=== PATIENT | female | born 1995 | race Caucasian/White ===

== ENCOUNTER 2016-10-24 18:49 | Emergency (ER) | payer OTHER ==
[~2016-10-24] VITALS: Ht 157.5 cm; Wt 81.6 kg
[~2016-10-24 18:49] MED LIST: IBUP-974 PO; PREN-385 PO
[2016-10-24 19:47] VITALS: BP 120/61
--- NOTE | 2016-10-24 21:02 | NUR ---
PT FELL 2 HRS AGO ON LEFT FOOT . PT DENIES N/V/D; SKIN IS PINK/WARM/DRY; AAOX4 WITH EVEN AND STEADY GAIT; LUNGS CLEAR BL; HR EVEN AND REGULAR; PT DENIES ANY FEVER, CP, SOB, OR COUGH AT THIS TIME; PATIENT STATES PAIN OF 7/10 AT THIS TIME; VSS; PATIENT POSITIONED FOR COMFORT; HOB ELEVATED; BEDRAILS UP X2; BED DOWN. ER MD MADE AWARE OF PT STATUS.
[2016-10-24] MEDS ORDERED: HYDROcodone/APAP 5/325 MG 1 TAB TAB PO ONE (21:05)
--- NOTE | 2016-10-24 21:20 | NUR ---
Patient to bed 08
--- NOTE | 2016-10-24 21:29 | NUR ---
Patient to XRAY via wheelchair per tech.
[2016-10-24 22:33] VITALS: BP 123/64
== END 2016-10-24 22:32 | disposition home or self-care (01) ==
LOC: MED 18:50
DX: S93.402A Sprain of unspecified ligament of left ankle, initial encounter (principal); W01.0XXA Fall on same level from slipping, tripping and stumbling without subsequent striking against object, initial encounter; Y93.89 Activity, other specified; Y92.89 Other specified places as the place of occurrence of the external cause; Y99.8 Other external cause status
CPT/HCPCS: 73610; 73630; 81025; 99284

== ENCOUNTER 2017-10-15 08:59 | Observation (INO) | payer MEDICAID, OTHER ==
[~2017-10-15] VITALS: Ht 157.5 cm; Wt 94.3 kg
[2017-10-15 10:30] VITALS: BP 107/56
== END 2017-10-15 11:15 | disposition home or self-care (01) ==
LOC: MLD 08:59 → UNDOADMOB 08:59
PROVIDERS: ADMIT Obstetrics & Gynecology; ATTEND Obstetrics & Gynecology
DX: O21.2 Late vomiting of pregnancy (principal); O26.893 Other specified pregnancy related conditions, third trimester; R10.13 Epigastric pain; Z3A.31 31 weeks gestation of pregnancy
CPT/HCPCS: 76805; 81000; G0378; Q0092

== ENCOUNTER 2017-10-31 16:09 | Observation (INO) | payer MEDICAID ==
[~2017-10-31] VITALS: Ht 157.5 cm; Wt 94.3 kg
[~2017-10-31 16:09] MED LIST changes: -IBUP-974 PO
[2017-10-31 16:22] VITALS: BP 103/56
== END 2017-10-31 20:10 | disposition home or self-care (01) ==
LOC: MLD 16:09
PROVIDERS: ADMIT Obstetrics & Gynecology; ATTEND Obstetrics & Gynecology
DX: O26.893 Other specified pregnancy related conditions, third trimester (principal); R10.9 Unspecified abdominal pain; Z3A.32 32 weeks gestation of pregnancy
CPT/HCPCS: 76805; 81000; 93005; G0378; Q0092

== ENCOUNTER 2017-11-27 16:32 | Inpatient (IN) | payer MEDICAID ==
[~2017-11-27] VITALS: Ht 157.5 cm; Wt 98.4 kg
[2017-11-27 17:34] VITALS: BP 117/73
[2017-11-27] MEDS ORDERED: LACTATED RINGERS 1,000 ML IV SCH (18:20)
[2017-11-27] MEDS ORDERED: AMPICILLIN 2,000 MG in NACL 0.9% 100 ML IV SCH (18:20)
[2017-11-27] MEDS ORDERED: AMPICILLIN 2,000 MG VIAL ONE (18:23)
[2017-11-27] MEDS ORDERED: TERBUTALINE 1 MG/ML VIAL SUBQ SCH (18:30)
[2017-11-27] MEDS ORDERED: CITRIC ACID/SODIUM CITRATE 30 ML UDC PO SCH (19:00)
[2017-11-27 19:39] LABS: BASOPHILS % (AUTO) 0.2 % (0.0-2.0); EOSINOPHILS # (AUTO) 0.1 K/uL (0-0.4); EOSINOPHILS % (AUTO) 0.8 % (0.0-4.0); HEMATOCRIT 31.3 % (36-48); HEMOGLOBIN 10.8 g/dL (12.0-16.0); LYMPHOCYTES # (AUTO) 2.3 K/uL (2.5-16.5); LYMPHOCYTES % (AUTO) 22.4 % (20.5-51.1); MEAN CORPUSCULAR HEMOGLOBIN 32 pg (27-31); MEAN CORPUSCULAR HGB CONC 35 g/dL (33-37); MEAN CORPUSCULAR VOLUME 91.5 fL (80-94); MONOCYTES # (AUTO) 0.7 K/uL (0.8-1.0); MONOCYTES % (AUTO) 6.6 % (1.7-9.3); NEUTROPHILS # (AUTO) 7.2 K/uL (1.8-7.7); PLATELET COUNT (AUTO) 199 K/uL (140-450); RED BLOOD CELL COUNT(AUTO) 3.42 MIL/uL (4.20-5.40); RED CELL DISTRIBUTION WIDTH 13.4 % (11.6-13.7); WHITE BLOOD COUNT (AUTO) 10.3 K/uL (4.8-10.8)
[2017-11-27 19:57] LABS: ALBUMIN 2.5 g/dL (3.4-5.0); ANION GAP 11.7 (8-16); CARBON DIOXIDE 24.7 mmol/L (21-32); CREATININE 0.6 mg/dL (0.6-1.3); POTASSIUM 3.4 mmol/L (3.5-5.1); TOTAL BILIRUBIN 0.3 mg/dL (0.0-1.0)
[2017-11-27] MEDS ORDERED: AMPICILLIN 1,000 MG in NACL 0.9% 50 ML IV SCH (20:00)
[2017-11-27] MEDS ORDERED: ceFAZolin 1,000 MG VIAL ONE (21:51)
[2017-11-27] MEDS ORDERED: OXYTOCIN 10 UNITS/ML VIAL ONE (22:02)
[2017-11-27] MEDS ORDERED: OXYTOCIN 10 UNITS/ML VIAL IM SCH (22:05)
[2017-11-27] MEDS ORDERED: ePHEDrine 50 MG/ML VIAL IV ONE (22:26)
[2017-11-27] MEDS ORDERED: fentaNYL 0.05 MG/ML VIAL ONE (22:30)
[2017-11-27] MEDS ORDERED: MORPHINE PRES FREE 10 MG/10 ML AMP IV ONE (22:31)
[2017-11-27] MEDS ORDERED: BUPIVACAINE-MPF 0.75% 10 ML VIAL INJ ONE (22:31)
[2017-11-27] MEDS ORDERED: ceFAZolin 1,000 MG VIAL IVP ONE (22:55)
[2017-11-27] MEDS ORDERED: KETOROLAC 60 MG/2 ML VIAL IM PRN (23:05)
[2017-11-27] MEDS ORDERED: NALBUPHINE 10 MG/ML AMP IVP PRN (23:05)
[2017-11-27] MEDS ORDERED: NALOXONE 0.4 MG/ML VIAL IVP PRN ×3 (23:05)
[2017-11-27] MEDS ORDERED: ONDANSETRON 4 MG/2 ML VIAL IVP PRN ×2 (23:05)
[2017-11-27] MEDS ORDERED: OXYTOCIN 10 UNITS in LACTATED RINGERS 1,000 ML IV SCH (23:29)
[2017-11-27] MEDS ORDERED: METHYLERGONOVINE 0.2 MG/ML AMP IM PRN (23:30)
[2017-11-27] MEDS ORDERED: MEASLES, MUMPS, AND RUBELLA 1 VIAL SQVAC PRN (23:30)
[2017-11-27] MEDS ORDERED: HYDROcodone/APAP 5/325 MG 1 TAB TAB PO PRN (23:30)
[2017-11-27] MEDS ORDERED: oxyCODONE/APAP 5/325 MG 1 TAB TAB PO PRN (23:30)
[2017-11-27] MEDS ORDERED: TEMAZEPAM 15 MG CAP PO PRN (23:30)
[2017-11-27] MEDS ORDERED: TRIMETHOBENZAMIDE 200 MG/2 ML SYR IM PRN (23:30)
[2017-11-27] MEDS ORDERED: diphenhydrAMINE 50 MG/ML VIAL ONE (23:41)
[2017-11-27] MEDS ORDERED: OXYTOCIN 20 UNITS/LR PREMIX 1,000 ML IV ONE (23:43)
[2017-11-27] MEDS ORDERED: ONDANSETRON 4 MG/2 ML VIAL ONE (23:48)
[2017-11-28] MEDS ORDERED: OXYTOCIN 10 UNITS/ML VIAL ONE ×2 (02:05→22:05)
[2017-11-28] MEDS: diphenhydrAMINE 50 MG/ML VIAL IVP PRN ×2 (03:18→09:13)
[2017-11-28 06:15] LABS: BASOPHILS % (AUTO) 0.1 % (0.0-2.0); EOSINOPHILS % (AUTO) 0.3 % (0.0-4.0); HEMATOCRIT 27.9 % (36-48); HEMOGLOBIN 9.4 g/dL (12.0-16.0); LYMPHOCYTES # (AUTO) 2.4 K/uL (2.5-16.5); LYMPHOCYTES % (AUTO) 18.8 % (20.5-51.1); MEAN CORPUSCULAR HEMOGLOBIN 31 pg (27-31); MEAN CORPUSCULAR HGB CONC 34 g/dL (33-37); MEAN CORPUSCULAR VOLUME 92.1 fL (80-94); MONOCYTES # (AUTO) 0.7 K/uL (0.8-1.0); MONOCYTES % (AUTO) 5.8 % (1.7-9.3); NEUTROPHILS # (AUTO) 9.6 K/uL (1.8-7.7); PLATELET COUNT (AUTO) 163 K/uL (140-450); RED BLOOD CELL COUNT(AUTO) 3.03 MIL/uL (4.20-5.40); RED CELL DISTRIBUTION WIDTH 13.3 % (11.6-13.7); WHITE BLOOD COUNT (AUTO) 12.7 K/uL (4.8-10.8)
[2017-11-28] MEDS ORDERED: OXYTOCIN 20 UNITS in LACTATED RINGERS 1,000 ML IV SCH (08:38)
--- NOTE | 2017-11-28 08:51 | NUR ---
PATIENT HAS BEEN SCREENED AND CATEGORIZED LOW NUTRITION RISK. PATIENT WILL BE SEEN WITHIN 7 DAYS OF ADMISSION. 12/04/[address]
[2017-11-28] MEDS: SODIUM PHOSPHATE 118 ML ENEM RC SCH (09:00)
[2017-11-28] MEDS ORDERED: HYDROmorphone PFS 2 MG/ML SYR IVP PRN (10:05)
[2017-11-28] MEDS ORDERED: KETOROLAC 30 MG/ML VIAL IVP SCH (15:00)
[2017-11-28] MEDS ORDERED: oxyCODONE/APAP 5/325 MG 1 TAB TAB PO PRN (17:20)
[2017-11-28] MEDS ORDERED: HYDROcodone/APAP 5/325 MG 1 TAB TAB PO PRN ×2 (17:20→17:45)
[2017-11-28] MEDS ORDERED: DOCUSATE SOD/SENNA 50/8.6 MG 1 TAB PO SCH (21:00)
[2017-11-28] MEDS: oxyCODONE/APAP 5/325 MG 1 TAB TAB PO PRN (22:35)
[2017-11-29] MEDS: oxyCODONE/APAP 5/325 MG 1 TAB TAB PO PRN ×5 (04:55→23:30)
[2017-11-29] MEDS: SODIUM PHOSPHATE 118 ML ENEM RC SCH (09:00)
[2017-11-29] MEDS: SIMETHICONE 80 MG TAB.CHEW PO PRN ×2 (09:28→19:53)
[2017-11-29] MEDS ORDERED: DOCUSATE CALCIUM 240 MG GELCAP PO SCH (11:45)
[2017-11-29] MEDS ORDERED: BISACODYL 5 MG TABEC PO PRN ×2 (11:55)
[2017-11-29] MEDS: IBUPROFEN 800 MG TAB PO PRN ×2 (12:27→22:13)
[2017-11-30] MEDS: oxyCODONE/APAP 5/325 MG 1 TAB TAB PO PRN ×2 (04:45→13:10)
[2017-11-30] MEDS: SIMETHICONE 80 MG TAB.CHEW PO PRN ×2 (07:52→12:13)
[2017-11-30] MEDS: IBUPROFEN 800 MG TAB PO PRN (07:53)
[2017-11-30] MEDS: SODIUM PHOSPHATE 118 ML ENEM RC SCH (09:26)
[2017-11-30] MEDS ORDERED: IBUP-2213 PO ×2 (15:52→15:53)
[2017-11-30] MEDS ORDERED: SIME80CT70 PO (15:54)
== END 2017-11-30 16:10 | disposition home or self-care (01) | DRG 540 ==
LOC: MLD 16:32 → OBSVTOIN 19:22 → MFCC 11-28 00:20
PROVIDERS: ADMIT Obstetrics & Gynecology; ATTEND Obstetrics & Gynecology
PROC: 10D00Z1 Extraction of Products of Conception, Low, Open Approach (ICD-10-PCS; principal; 2017-11-27 22:30)
DX: O34.211 Maternal care for low transverse scar from previous cesarean delivery (principal); O99.214 Obesity complicating childbirth; D64.9 Anemia, unspecified; Z3A.36 36 weeks gestation of pregnancy; Z37.0 Single live birth; Z68.39 Body mass index [BMI] 39.0-39.9, adult; Z28.21 Immunization not carried out because of patient refusal; O99.02 Anemia complicating childbirth
CPT/HCPCS: G0378 ×3; 36415; 76819; 80053; 85025; 86592; 86886; 86900; 86901; J0290; J0690; J1200; J1885; J2270; J2405; J2590; J3010; J3490; J7060; J7120; Q0092

== ENCOUNTER 2018-11-03 14:06 | Inpatient (IN) | payer OTHER ==
[~2018-11-03] VITALS: Ht 157.5 cm; Wt 93.0 kg
[~2018-11-03 14:06] MED LIST changes: +IBUP-2213 PO; +SIME80CT70 PO
[2018-11-03 14:21] VITALS: BP 127/81
--- NOTE | 2018-11-03 14:35 | NUR ---
23 Y FEMALE BIB BOYFRIEND C/O BURNING PAIN IN BACK AND BURNING/TIGHT PAIN IN EPIGASTRIC REGION AT 10, TREATED WITH NORCO AND PERCOCET WITH NO RELIEF. PT REPORTS TUMMY TUCK, LIPO SUCTION, AND MUSCLE REPAIR SURGERY IN [facility] ON 10/31/18. JOAN DRAIN AND KRYSTA DRAIN WITH THIN BLOODY DRAINAGE. NO ERYTHEMA, OR EDEMA AROUND INCISION, NO DEHISCENE. + NAUSEA, -VOMITING. VSS AT THIS TIME. AA0X4. BED IS DOWN, LOCKED, BED RAIL X 1, ERMD NOTIFIED. MEDHX:NONE RX:NORCO
--- NOTE | 2018-11-03 15:30 | NUR ---
DR VALLECILLO AT BEDSIDE
--- NOTE | 2018-11-03 15:31 | NUR ---
Female Clinical Application Consultant, CONRADO FRAZIER, accompanied female patient for PHYSICAL Exam.
[2018-11-03] MEDS ORDERED: ONDANSETRON 4 MG/2 ML VIAL IVP ONE (15:40)
[2018-11-03] MEDS ORDERED: NACL 0.9% 1,000 ML IV ONE (15:40)
[2018-11-03] MEDS ORDERED: MORPHINE SULFATE 4 MG/ML SYR IVP ONE ×2 (15:40→19:40)
[2018-11-03 16:19] LABS: BASOPHILS % (AUTO) 0.2 % (0.0-2.0); EOSINOPHILS # (AUTO) 0.1 K/uL (0-0.4); EOSINOPHILS % (AUTO) 0.6 % (0.0-4.0); HEMATOCRIT 26.1 % (36-48); HEMOGLOBIN 8.8 g/dL (12.0-16.0); LYMPHOCYTES # (AUTO) 2.9 K/uL (2.5-16.5); LYMPHOCYTES % (AUTO) 29.7 % (20.5-51.1); MEAN CORPUSCULAR HEMOGLOBIN 30 pg (27-31); MEAN CORPUSCULAR HGB CONC 34 g/dL (33-37); MEAN CORPUSCULAR VOLUME 88.9 fL (80-94); MONOCYTES # (AUTO) 0.6 K/uL (0.8-1.0); MONOCYTES % (AUTO) 6.1 % (1.7-9.3); NEUTROPHILS # (AUTO) 6.2 K/uL (1.8-7.7); NEUTROPHILS % (AUTO) 63.4 % (42.2-75.2); PLATELET COUNT (AUTO) 246 K/uL (140-450); RED BLOOD CELL COUNT(AUTO) 2.94 MIL/uL (4.20-5.40); RED CELL DISTRIBUTION WIDTH 13.5 % (11.6-13.7); WHITE BLOOD COUNT (AUTO) 9.8 K/uL (4.8-10.8)
--- NOTE | 2018-11-03 16:30 | NUR ---
PT IS AA0X4. VSS AT THIS TIME.
[2018-11-03 17:27] LABS: APPEARANCE,URINE HAZY (CLEAR)
[2018-11-03 17:28] LABS: BILIRUBIN,URINE NEGATIVE (NEGATIVE); BLOOD, URINE 2+ (NEGATIVE); COLOR,URINE YELLOW (YELLOW); UGLUCOSE NEGATIVE (NEGATIVE)
[2018-11-03 17:29] LABS: LEUKOCYTE ESTERASE ,URINE NEGATIVE (NEGATIVE); NITRITE, URINE NEGATIVE (NEGATIVE)
[2018-11-03 17:59] LABS: RBC,URINE 80-100 /HPF (0-5); WBC,URINE 0-5 /HPF (0-5)
--- NOTE | 2018-11-03 18:24 | NUR ---
CT WITH CONTRAST DELAYED FOR LAB RESULTS
--- NOTE | 2018-11-03 18:24 | NUR ---
IV FLUIDS SWITCHED TO 20 G IN THE LT ARM
[2018-11-03 18:28] LABS: ANION GAP 15.9 (8-16); CARBON DIOXIDE 25.7 mmol/L (21-32); POTASSIUM 3.6 mmol/L (3.5-5.1)
[2018-11-03 18:29] LABS: CREATININE 0.7 mg/dL (0.6-1.3)
[2018-11-03 18:34] LABS: ALBUMIN 2.8 g/dL (3.4-5.0); TOTAL BILIRUBIN 0.5 mg/dL (0.0-1.0)
--- NOTE | 2018-11-03 19:16 | NUR ---
PT TAKEN TO XRAY BY BED WITH RT.
--- NOTE | 2018-11-03 19:22 | NUR ---
PT BACK FORM XRAY, PROCEDURE WAS NO TOLERATED. ER AWARE.
--- NOTE | 2018-11-03 19:23 | NUR ---
report given to anton hussein
--- NOTE | 2018-11-03 19:30 | NUR ---
REGINALD HERNANDEZ AT BEDSIDE.
[2018-11-03] MEDS ORDERED: ACET-5629 PO (20:07)
[2018-11-03] MEDS ORDERED: HYDR-5122 PO (20:07)
--- NOTE | 2018-11-03 20:16 | NUR ---
PT RETURN FROM CT
[2018-11-03] MEDS ORDERED: fentaNYL 0.05 MG/ML VIAL IVP ONE (21:30)
--- NOTE | 2018-11-03 22:05 | NUR ---
1.5 L of O2 STARTED, PATIENT WAS FEELING SOB. REGINALD HERNANDEZ AWARE. Addendum: 11/03/18 at 2309 by MEDGA 1.5 L of O2 STARTED NC, PATIENT WAS FEELING SOB. REGINALD HERNANDEZ AWARE.
[2018-11-03] MEDS: NACL 0.9% 1,000 ML IV SCH (23:50)
--- NOTE | 2018-11-03 23:55 | NUR ---
Patient will be admitted to care of [facility] . Admited to TELE. Will go to room 125B. Belongings list completed. Report to ELIS REECE. Addendum: 11/04/18 at 0335 by ANIVALGA Patient will be admitted to care of [facility]. Admited to TELE. Will go to room 125B. Belongings list completed. Report to ELIS ARORAS.
--- NOTE | 2018-11-04 | NUR ---
PT. RECEIVED PER JESSICA AWAKE AND ALERT. DX. ABDOMINAL PAIN RT S/P TUMMY TUCK AND LIPOSUCTION IN [facility] 09/30/18. ORIENTED X 4. ROM X 4. CLEAR SPEECH. NO SOB. ROOM AIR . 02 SAT 100%. PT. WITH HEMOVAC TO TUMMY TUCK SITE AND WITH SEROUS SANGUINOUS OUTPUT. PT. ABLE TO EMPTY IT AND JOAN DRAIN TO BACK. ORIENTED TO ROOM, CARE GIVERS, AND CALL LIGHT USE. CARE PLANS FOR THE NIGHT DISCUSSED WITH HER. SPOUSE AT BEDSIDE. TELEMETRY MONITORING. NSR. IVF SITES TO RAC #20 AND LEFT AC 24.
[2018-11-04 00:25] VITALS: BP 101/55
[2018-11-04] MEDS: MORPHINE SULFATE 4 MG/ML SYR IVP PRN ×5 (00:29→17:12)
--- NOTE | 2018-11-04 01:29 | NUR ---
SLEEPING AT THIS TIME.
--- NOTE | 2018-11-04 02:45 | NUR ---
PT. AMBULATED WELL TO RESTROOM TO URINATE. NO BM AT THIS TIME. ABLE TO URINATE.
[2018-11-04 03:03] VITALS: BP 93/60
--- NOTE | 2018-11-04 03:06 | NUR ---
PT. WOKE UP AND REQUESTING FOR PAIN RELIEVER. WILL MEDICATE REQUESTED. SPOUSE AT BEDSIDE WATCHING OVER PT.
--- NOTE | 2018-11-04 04:12 | NUR ---
SLEEPING AT THIS TIME.
--- NOTE | 2018-11-04 04:25 | NUR ---
HEMOVAC EMPTIED OF 50 ML SEROUS SANGUINOUS DRAINAGE. JOAN AT LIPOSUCTION SITE NO DRIPPING PER PT.
[2018-11-04 06:02] VITALS: BP 108/68
--- NOTE | 2018-11-04 06:04 | NUR ---
PT. AWAKE AND REQUESTING FOR PAIN RELIEVER. WILL MEDICATE WITH MORPHINE ORDERED. ABLE TO VERBALIZE NEEDS WELL. TELEMETRY MONITORING.
--- NOTE | 2018-11-04 07:23 | NUR ---
ENDORSED TO AM RN FOR CONTINUITY OF CARE AWAKE AND ALERT. NO PAIN COMPLAINTS NOW. MEDICATED PRN WITH MORPHINE. PT. EDUCATED RE: SIDE EFFECTS. AWARE.
--- NOTE | 2018-11-04 07:25 | NUR ---
REPORT RECEIVED FROM RETAIL BUSINESS DEVELOPMENT MANAGER, PT AWAKE ALERT, RESP EVEN UNLABORED ON RA, SKIN WARM DRY COLOR WNL, NO C/O PAIN OR DISCOMFORT AT THIS TIME, POC REVIEWED, NO IMMEDIATE NEEDS AT THIS TIME, WILL CONTINUE TO MONITOR.
[2018-11-04 07:51] LABS: ALBUMIN 2.5 g/dL (3.4-5.0); ANION GAP 15.2 (8-16); CARBON DIOXIDE 22.5 mmol/L (21-32); CREATININE 0.6 mg/dL (0.6-1.3); POTASSIUM 3.7 mmol/L (3.5-5.1); TOTAL BILIRUBIN 0.7 mg/dL (0.0-1.0)
[2018-11-04 08:03] LABS: BASOPHILS % (AUTO) 0.2 % (0.0-2.0); EOSINOPHILS # (AUTO) 0.2 K/uL (0-0.4); EOSINOPHILS % (AUTO) 1.5 % (0.0-4.0); HEMATOCRIT 25.3 % (36-48); HEMOGLOBIN 8.5 g/dL (12.0-16.0); LYMPHOCYTES # (AUTO) 3.3 K/uL (2.5-16.5); LYMPHOCYTES % (AUTO) 31.4 % (20.5-51.1); MEAN CORPUSCULAR HEMOGLOBIN 30 pg (27-31); MEAN CORPUSCULAR HGB CONC 34 g/dL (33-37); MEAN CORPUSCULAR VOLUME 89.7 fL (80-94); MONOCYTES # (AUTO) 0.7 K/uL (0.8-1.0); MONOCYTES % (AUTO) 6.5 % (1.7-9.3); NEUTROPHILS # (AUTO) 6.3 K/uL (1.8-7.7); NEUTROPHILS % (AUTO) 60.4 % (42.2-75.2); PLATELET COUNT (AUTO) 250 K/uL (140-450); RED BLOOD CELL COUNT(AUTO) 2.82 MIL/uL (4.20-5.40); RED CELL DISTRIBUTION WIDTH 13.4 % (11.6-13.7); WHITE BLOOD COUNT (AUTO) 10.4 K/uL (4.8-10.8)
--- NOTE | 2018-11-04 08:06 | NUR ---
PT ASSISTED WITH CHANGING GOWN AND DEPENDS, PT STATES SHE FEELS DIZZY WHEN STANDING, PT ASSISTED BACK TO BED, POSITIONED FOR COMFORT, VITALS STABLE, WILL CONTINUE TO MONITOR.
[2018-11-04 09:00] VITALS: BP 114/62
--- NOTE | 2018-11-04 10:05 | NUR ---
WOUND CARE EVALUATION NOTE: REASON FOR EVALUATION: S/P DAVID TUCK SURGICAL WOUNDS SKIN ASSESSMENT DONE WITH THIS 23 Y/O FEMALE S/P DAVID TUCK SURGICAL WOUNDS. PT. EXPLAIN THE POST OP FOLLOW UP APPOINTMENT IN 2 WEEKS BACK TO [facility]. PT. IS AAX4. EXPLAIN TO PT. ALL SURGICAL SITES NO S/S OF INFECTION AND NO WOUND DEHISCENCE. WILL HAVE PAIN CONTROL AND REQUEST SURGEON TO CONSULT AT THIS TIME. PLAN OF CARE DISCUSSED WITH PT AND PRIMARY RN. PT. VERBALIZES UNDERSTANDING. INTEGUMENTARY: -S/P DAVID TUCK SURGICAL WOUNDS TO LOWER ABDOMINAL SUTURE LINES 33 CM IN WIDTH, STERI STRIPS IN PLACE DRY AND CLEAN, NO S/S INFECTION AND NO WOUND DEHISCENCE - S/P DAVID TUCK SURGICAL WOUNDS TO MID ABDOMINAL SUTURE LINES 5 CM IN LENGTH, DRY AND CLEAN NO S/S INFECTION AND NO WOUND DEHISCENCE -RIGHT HIP HEMOVAC SITE DRY AND CLEAN WITH SUTURES SECURED, FUNCTIONING, SMALL AMOUNT SANGUINOUS DRAINAGE IN THE HEMO VAC OBSERVED. -LOWER BUTTOCK WITH JOAN DRAIN IN PLACE AND FUNCTIONING, SMALL AMOUNT SEROUS DRAINAGE, NO ODOR RECOMMENDATIONS: -SURGEON TO CONSULT -KEEP LOWER ABDOMINAL SURGICAL STERI STRIPS IN PLACE, KEEP IT DRY AND CLEAN ANT ALL TIMES -CLEANSE SUTURE LINES WITH NS TO MID ABDOMINAL SUTURES AND RIGHT HIP HEMOVAC SITE, PAT COMPLETE DRY AND LEAVE IT OPEN TO AIR QD -CONTINUE TO MONITOR JOAN DRAIN PLACEMENT AND DRAINAGE Q SHIFT. -CONTINUE TO MONITOR/ EMPTY HEMOVAC Q SHIFT -CONTINUE TO FOLLOW RD RECOMMENDATIONS ALL ABOVE RECOMMENDATIONS DISCUSSED WITH PRIMARY RN. PLEASE CONTACT WOUND CARE NURSE FOR ANY QUESTION AND CHANGE OF WOUND CONDITION.
--- NOTE | 2018-11-04 10:33 | NUR ---
PATIENT HAS BEEN SCREENED AND CATEGORIZED LOW NUTRITION RISK. PATIENT WILL BE SEEN WITHIN 7 DAYS OF ADMISSION. 11/10/[address]
--- NOTE | 2018-11-04 11:20 | NUR ---
DR COFFEY AT BEDSIDE
--- NOTE | 2018-11-04 11:25 | NUR ---
DR COFFEY MADE AWARE OF INCREASED HR 100-118.
[2018-11-04 11:30] VITALS: BP 115/60
--- NOTE | 2018-11-04 13:05 | NUR ---
PT ASSISTED TO BATHROOM, JOAN ON LOWER BACK WITH COPIOUS DRAINAGE, PADS CHANGED, PT DENIES LIGHTHEADEDNESS, RETURNED BACK TO BED WILL CONTINUE TO [facility].
[2018-11-04] MEDS: HYDROcodone/APAP 10/325 MG 1 TAB TAB PO PRN ×2 (13:07→22:20)
[2018-11-04] MEDS: GAUZE TP SCH (13:09)
[2018-11-04] MEDS ORDERED: DOCUSATE SODIUM 250 MG GELCAP PO SCH (14:00)
[2018-11-04] MEDS: NACL 0.9% 1,000 ML IV SCH (14:48)
--- NOTE | 2018-11-04 14:50 | NUR ---
NEW IV BAG HUNG, PT AWAKE ALERT, NO C/O PAIN AT THIS TIME, IVF INFUSING WELL, SITE WNL, PT C/O ITCHING THROUGH OUT BODY , PT REQUESTS JEAN-PIERREADRYL, DR OLAMIDE LEUNG.
--- NOTE | 2018-11-04 15:25 | NUR ---
PT ASSISTED WITH CHANGING GOWN, UNDERWEAR, PENDRAIN SITE WITH COPIOUS DRAINAGE, PT UP OUT OF BED WITHOUT PROBLEM, AMBULATES AND TRANSFERS WITH EASE.
[2018-11-04 16:00] VITALS: BP 118/73
--- NOTE | 2018-11-04 17:18 | NUR ---
MORPHINE GIVEN FOR PAIN.
--- NOTE | 2018-11-04 18:10 | NUR ---
PT CONTINUES TO C/O PAIN, DR AUGUSTE CALLED AND RECEIVED ORDER FOR BENADRYL
[2018-11-04] MEDS ORDERED: diphenhydrAMINE 50 MG CAP PO SCH (18:15)
[2018-11-04] MEDS: ONDANSETRON 4 MG/2 ML VIAL IVP PRN (19:18)
--- NOTE | 2018-11-04 19:18 | NUR ---
RECEIVED PT IN STABLE CONDITION FROM AM NURSE. AWAKE,ALERT AND ORIENTED X4. ON MED SURG. WITH FAMILY AT BEDSIDE. C/O NAUSEA. WILL MEDICATE ORDERED. HAS IVF INFUSING WELL ON THE RT AC G#24. CLEAN AND PATENT. WITH LOWER ABDOMINAL STERI STRIPS. HEMOVAC DRAIN ON THE RT HIP AND JOAN DRAIN AT THE COCCYX AREA,DRESSING IN PLACED. BED ON LOW POSITION, FREQ CHECKED ,CALL LIGHT WITHIN EASY REACH. WILL CONTINUE TO MONITOR.
--- NOTE | 2018-11-04 19:21 | NUR ---
REPEORT GIVEN TO KENO DEALER NURSE FAVIAN, PT IN STABLE CONDITION.
--- NOTE | 2018-11-04 20:18 | NUR ---
C/O BLURRY VISION. PAGED DR. QUIÑONEZ, AND DR. AUGUSTE FINANCIAL RESERVE CLERK. WILL WAIT FOR CALL BACK.
--- NOTE | 2018-11-04 20:24 | NUR ---
DR. AUGUSTE CALLED BACK AND MADE AWAREVOF THE PT C/O BLURRY VISION. NO NEW ORDER MADE. WILL CONTINUE TO MONITOR.
--- NOTE | 2018-11-04 22:00 | NUR ---
JOAN DRAIN A LOT ,WET . CLEANED AND DRESSING CHANGED.
--- NOTE | 2018-11-04 22:20 | NUR ---
PT REFUSED THE MORPHINE FOR PAIN. THIS TIME SHE PREFER NORCO . GIVEN ORDERED.
--- NOTE | 2018-11-04 23:20 | NUR ---
MADE ROUNDS. PT ASLEEP. NO S/S OF ANY PAIN NOTED.
[2018-11-05 00:17] VITALS: BP 123/74
--- NOTE | 2018-11-05 01:30 | NUR ---
MADE ROUNDS. PT IS ASLEEP. NO DISCOMFORT NOTED AT THIS TIME.
--- NOTE | 2018-11-05 04:10 | NUR ---
PT AWAKE. JOAN DRAIN DRESSING CHANGED.
[2018-11-05] MEDS: NACL 0.9% 1,000 ML IV SCH ×3 (04:26→18:44)
[2018-11-05 05:00] VITALS: BP 118/71
[2018-11-05] MEDS: HYDROcodone/APAP 10/325 MG 1 TAB TAB PO PRN ×3 (05:03→20:06)
--- NOTE | 2018-11-05 06:00 | NUR ---
HEMOVAC OUTPUT @50 ML SEROSANGUINEOUS
--- NOTE | 2018-11-05 07:06 | NUR ---
PT I STABLE CONDITION . WILL ENDORSE TO AM NURSE FOR CONTINUITY OF CARE.
--- NOTE | 2018-11-05 07:10 | NUR ---
RECEIVED PT FROM MANAGER FUNCTIONAL NURSEFAVIAN, PT IS AWAKE AND LYING ON THE BED WITH SIDE RAILS UP AND CALL LIGHT WITHIN REACH, PT HAS A HEMOVAC IN PLACE ON THE RT HIP SIDE, AND A JOAN DRAIN ON THE SACRAL TOP AREA, REINFORCED WITH ABDOMINAL DRESSINGS AND INTACT, PT HAS IV LINE ON THE LEFT AC G.20 ON SALINE LOCK AND ON THE RT ASG. 24 WITH NS AT 70ML/HR INFUSING AND INTACT, PT VERBALIZED A PAIN RATE OF 9/10 AND WILL MEDICATE. WILL MONITOR PT.
[2018-11-05 07:41] LABS: BASOPHILS % (AUTO) 0.2 % (0.0-2.0); EOSINOPHILS # (AUTO) 0.3 K/uL (0-0.4); EOSINOPHILS % (AUTO) 2.9 % (0.0-4.0); HEMATOCRIT 24.9 % (36-48); HEMOGLOBIN 8.5 g/dL (12.0-16.0); LYMPHOCYTES # (AUTO) 2.2 K/uL (2.5-16.5); LYMPHOCYTES % (AUTO) 21.1 % (20.5-51.1); MEAN CORPUSCULAR HEMOGLOBIN 31 pg (27-31); MEAN CORPUSCULAR HGB CONC 34 g/dL (33-37); MEAN CORPUSCULAR VOLUME 88.8 fL (80-94); MONOCYTES # (AUTO) 0.8 K/uL (0.8-1.0); MONOCYTES % (AUTO) 7.7 % (1.7-9.3); NEUTROPHILS % (AUTO) 68.1 % (42.2-75.2); PLATELET COUNT (AUTO) 311 K/uL (140-450); RED CELL DISTRIBUTION WIDTH 13.6 % (11.6-13.7); WHITE BLOOD COUNT (AUTO) 10.3 K/uL (4.8-10.8)
--- NOTE | 2018-11-05 07:50 | NUR ---
PT IS AWAKE AND WAS ASSISTED TO THE BATHROOM, AND BACK TO BED, AND MADE COMFORTABLE WITH 2 WARM BLANKETS, WILL MONITOR PT.
[2018-11-05 08:00] VITALS: BP 118/67
--- NOTE | 2018-11-05 08:00 | NUR ---
CM NOTE I SPOKE WITH NIKI OF DR. LARISSA [facility] PH# [phone] IN AN ATTEMPT TO SCHEDULE AN OUTPATIENT FOLLOW UP APPOINTMENT. PER NIKI, THEY ARE A WALK IN CLINIC AND THEY DO NOT SCHEDULE APPOINTMENTS. SHE ALSO SAID THAT THE CLINIC SCHEDULE IS FROM MONDAYS TO FRIDAYS [id number] TIME AND SATURDAYS [id number] TIME AT THE CLINIC AT [address] [place] [address]. I PROVIDED THE PATIENT THE CLINIC SCHEDULE, ADDRESS AND PHONE NUMBER OF THE CLINIC AND EMPHASIZED THE IMPORTANCE OF FOLLOWING UP WITH HER PCP POST DISCHARGE. THE PATIENT VERBALIZED UNDERSTANDING.
--- NOTE | 2018-11-05 08:19 | NUR ---
DUE TO CHANGE IN TAHIRA SCORE PATIENT HAS BEEN RESCREENED AND CATEGORIZED MODERATE RISK. PATIENT WILL BE SEEN WITHIN 3-5 DAYS FROM ADMISSION. 11/06/18-11/08/[address]
[2018-11-05] MEDS: ONDANSETRON 4 MG/2 ML VIAL IVP PRN (08:58)
[2018-11-05] MEDS: DOCUSATE SODIUM 250 MG GELCAP PO SCH (08:58)
[2018-11-05] MEDS: MORPHINE SULFATE 4 MG/ML SYR IVP PRN (08:59)
--- NOTE | 2018-11-05 08:59 | NUR ---
PT IS AWAKE AND VERBALIZED A PAIN RATE OF 9/10, VITAL SIGNS CHECKED AND BP IS 118/66, PULSE IS 109. TEMPERATURE IS98.2, O2 SATURATION IS AT 98%, RESPIRATION IS EVEN AT A RATE OF 16/MIN, PAIN MEDICATION WAS GIVEN VIA IV PUSH AND PT TOLERATED IT. NO SIGN OF DISTRESS NOTED, WILL MONITOR PT.
[2018-11-05] MEDS ORDERED: BISACODYL 10 MG SUPP RC SCH (10:12)
[2018-11-05] MEDS: GAUZE TP SCH (12:55)
--- NOTE | 2018-11-05 13:00 | NUR ---
PT HEMOVAC DRESSING WAS CHANGED WELL THE JOAN DRESSING.
--- NOTE | 2018-11-05 13:55 | NUR ---
TALKED TO DR. QUIÑONEZ MADE AWARE PT TEMP 101.4 ORALLY, PATIENT AWAKE, ORIENTED X4, ICE APPLIED ON BOTH AXILLA, WET TOWEL ON FOREHEAD, IVF ONGOING WELL TOLERATED.
--- NOTE | 2018-11-05 14:30 | NUR ---
PT WAS ASSISTED TO THE BATHROOM AND MADE A BOWEL MOVEMENT, AND WAS ASSISTED BACK TO BED, DRESSING WAS CHANGE. NO SIGN OF DISTRESS NOTED AND WILL MONITOR PT.
[2018-11-05] MEDS: ACETAMINOPHEN 325 MG TAB PO PRN (14:55)
--- NOTE | 2018-11-05 15:00 | NUR ---
PT IS AWAKE AND TYLENOL WAS GIVEN FOR A TEMPERATURE OF 100.4, MEDICATION NWAS GIVEN ALSO VIA IVPB AND PT TOLERATED IT, NO SIGN OF DISTRESS NOTED. WILL CONTINUE TO MONITOR PT.
[2018-11-05 16:00] VITALS: BP 105/70
--- NOTE | 2018-11-05 19:05 | NUR ---
ENDORSED PT TO BOWLING BALL ENGRAVER NURSEPAPO FOR CONTINUITY OF CARE, PT IS WITH ON THE BEDSIDE AWAKE AND IS STABLE THIS TIME.
[2018-11-05 20:00] VITALS: BP 118/68
--- NOTE | 2018-11-05 21:56 | NUR ---
PT C/O OF 05/08 PAIN UNRELIEVED BY NORCO EARLIER.INFORMED DR. REAL CASE CONSULTANT,WILL ORDER DILAUDID
--- NOTE | 2018-11-05 22:00 | NUR ---
PT'S DRESSING CHANGED. DID NOT ADMINISTER DILAUDID YET PT COULD TOLERATE DRESSING CHANGE AND ABLE TO WALK TO THE BATHROOM WITHOUT SIGNS/SX'S OF SEVERE PAIN
--- NOTE | 2018-11-06 01:00 | NUR ---
PT C/O 10/10 PAIN ON ABDOMINAL SITE S/P SURGERY. WILL ADMINISTER THE DILAUDID ORDERED EARLIER BY DR. QUIÑONEZ.
[2018-11-06] MEDS: HYDROmorphone 1 MG/ML AMP IVP PRN ×5 (01:04→22:24)
--- NOTE | 2018-11-06 03:30 | NUR ---
CHANGED DRESSING OF PATIENT, SOAKED DRESSING, MAXIMAL AMOUNT. JOAN DRAIN OPEN TO DRAIN DRESSING SOAKED. SOAKED DRESSING, MAX IN AMOUNT PURULENT DRAINAGE NOTED ON THE RIGHT ABDOMEN WOUND. DRAINED 50 ML= HEMOVAC.
--- NOTE | 2018-11-06 03:35 | NUR ---
ASSESSED ABDOMEN, NOTED SWELLING ON THE LEFT SIDE OF ABDOMEN. PT SIDE THAT WHEN TOUCHED PAIN IS 9/10, PT FLINCHING IN PAIN UPON PALPATION. INFORMED CHARGE NURSE. TO INFORM NEXT SHIFT NURSE TO INFORM
--- NOTE | 2018-11-06 04:09 | NUR ---
CHANGED DRESSING, PT C/O OF 05/08 PAIN, PAIN MEDS WILL BE GIVEN
--- NOTE | 2018-11-06 05:55 | NUR ---
TEMP 99.1 AFEBRILE BI Addendum: 11/06/18 at 0555 by Alecia Milton RN TEMP 99.1 AFEBRILE, BUT PT C/O HEADACHE 12/06 WILL ADMINISTER TYLENOL
[2018-11-06] MEDS: ACETAMINOPHEN 325 MG TAB PO PRN ×2 (05:56→16:38)
--- NOTE | 2018-11-06 06:47 | NUR ---
PT AWAKE,IN BED SITTING. GIVEN TYLENOL WILL ENDORSE TO NEXT SHIFT FOR PAIN REASSESSMENT. WILL ENDORSE TO NEXT SHIFT, MAX AMOUNT OF SOAKED DRESSING ON RIGHT SIDE OF ABDOMEN, YELLOW IN COLOR. DRESSING ON THE SACRAL AREA W/ THE JOAN DRAIN, DRAINING FREELY. YELLOW IN COLOR, ALSO SOAKED MAX AMOUNT.
--- NOTE | 2018-11-06 07:15 | NUR ---
RECEIVED PT FROM LEATHER ROLLER NURSETADEO, PT IS AWAKE AND LYING ON THE BED WITH SIDE RAILS UP AND CALL LIGHT WITHIN REACH, PT HAS IV LINES ON THE RT AC G. 22 WITH NS AT 70ML, INFUSING, INTACT, PT HAS A HEMOVAC AND JOAN DRAIN IN PLACE, PT DENIES PAIN AND NO MSIGN OF DISTRESS NOTED. WILL MONITOR PT.
[2018-11-06 08:00] VITALS: BP 105/67
--- NOTE | 2018-11-06 08:10 | NUR ---
PT IS AWAKE AND VITAL SIGNS TAKEN, BP IS 105/67, TEMPERATURE IS 97.6, PULSE IS 106, O2 SATURATION IS 100%, NO SIGN OF DISTRESS NOTED. WILL MONITOR PT.
--- NOTE | 2018-11-06 09:11 | NUR ---
DR. QUIÑONEZ MADE A VERBAL ORDER TO OBTAIN STERILE SAMPLE FROM THE HEMOVAC FOR A CULTURE, ACKNOWLEDGED AND WILL CARRY OUT MD ORDER.
[2018-11-06] MEDS: NACL 0.9% 1,000 ML IV SCH (09:41)
[2018-11-06] MEDS: DOCUSATE SODIUM 250 MG GELCAP PO SCH (09:41)
--- NOTE | 2018-11-06 09:44 | NUR ---
PT IS AWAKE AND VITAL SIGNS CHECKED, BP IS 114/61, PULSE IS 109, O2 , PT VERBALIZED A PAIN RATE OF 7/10 ON HER HEAD AND ASKED FOR A PAIN MEDICATION , ORAL AND IV PUSH MEDICATIONS WERE GIVEN AND PT TOLERATED IT. WILL RE-ASSESS AND MONITOR PT.
--- NOTE | 2018-11-06 11:25 | NUR ---
SAMPLE WAS TAKEN FROM THE HEMOVAC TUBING FOR THE AEROBIC AND ANAEROBIC CULTURE, SAMPLE WAS SENT OT LAB.
[2018-11-06] MEDS: GAUZE TP SCH (13:00)
--- NOTE | 2018-11-06 13:00 | NUR ---
PT WAS ASSISTED TO THE BATHROOM AND MADE A BOWEL MOVEMENT, DRESSINGS WERE CHANGED.
--- NOTE | 2018-11-06 14:49 | NUR ---
PT IS AWAKE AND VERBALIZED A PAIN RATE OF 8/10, ORAL AND IV MEDICATIONS WERE GIVEN AN PT TOLERATED IT. NO SIGN OF DISTRESS NOTED AND WILL RE-ASSESS PAIN AND MONITOR PT.
[2018-11-06 16:00] VITALS: BP 107/65
--- NOTE | 2018-11-06 16:39 | NUR ---
PT VERBALIZED A HEADACHE AND ASKED FOR A TYLENOL, MEDICATION WAS GIVEN. WILL MONITOR PT.
--- NOTE | 2018-11-06 19:20 | NUR ---
ENDORSED PT TO IT ADMINISTRATIVE ASSISTANT NURSETADEO FOR CONTINUITY OF CARE. PT IS STABLE AT THIS TIME.
--- NOTE | 2018-11-06 19:21 | NUR ---
RECEIVED PT FROM AM SHIFT SHIFT NURSE. PT A, O X 4. PT IS ON THE BED. WITH IV LINES ON THE RT AC G. 24 WITH NS AT 70ML, INFUSING, INTACT, PT HAS A HEMOVAC AND JOAN DRAIN IN PLACE, DRESSINGS IN PLACE. SIDE RAILS UP AND CALL LIGHT WITHIN REACH, WILL MONITOR PT
--- NOTE | 2018-11-06 19:30 | NUR ---
PT AMBULATED TO BATHROOM, VOIDED 1X. NO COMPLAINTS AND DISTRESS AT THIS TIME
[2018-11-06 20:00] VITALS: BP 114/84
--- NOTE | 2018-11-06 22:24 | NUR ---
PT C/O 10/10 PAIN ON ABDOMINAL SITE, WILL ADMINISTER PAIN MED ORDERED.
[2018-11-07] MEDS: HYDROcodone/APAP 10/325 MG 1 TAB TAB PO PRN ×2 (00:44→14:39)
--- NOTE | 2018-11-07 00:44 | NUR ---
PT AGAIN C/O OF PAIN UNRELIEVED BY LEOBARDO FIELDS Addendum: 11/07/18 at 0349 by Alecia Milton RN LEOBARDO FRANCO
[2018-11-07 04:00] VITALS: BP 123/85
[2018-11-07] MEDS: HYDROmorphone 1 MG/ML AMP IVP PRN ×3 (06:00→21:52)
--- NOTE | 2018-11-07 06:00 | NUR ---
CHANGED DRESSINGS, SOAKED MAX AMOUNT ON THE HEMOVAC SITE(R HIP AREA) AND THE JOAN DRAIN (SACRAL AREA).
--- NOTE | 2018-11-07 07:28 | NUR ---
ENDORSED TO NEXT SHIFT FOR CONTINUITY OF CARE. PT HAS HEMOVAC OUTPUT OF 70 ML, TOTAL OF THE SHIFT
--- NOTE | 2018-11-07 07:29 | NUR ---
RECEIVED BEDSIDE REPORT FROM BLUEPRINT ENGINEER NURSE. PATIENT IS AWAKE, ALERT AND ORIENTEDX4. NO SIGNS OF DISTRESS ON RA. SKIN HAS TWO SURGICAL WOUNDS, R HIP DRAIN, AND SACRAL JOAN DRAIN. BOTH ARE DRAINING WELL. L AC 20G INFUSING NS AT 40. CLEAN, DRY AND INTACT. R AC 24G SL. CLEAN, DRY AND INTACT. PATIENT IS AMBULATORY. CONTINENT. BED IN LOW POSITION. CALL LIGHT WITHIN REACH. PATIENT ABLE TO MAKE NEEDS KNOWN. WILL CONTINUE TO MONITOR
[2018-11-07 08:00] VITALS: BP 112/56
[2018-11-07] MEDS: DOCUSATE SODIUM 250 MG GELCAP PO SCH ×2 (09:00→12:32)
[2018-11-07] MEDS: NACL 0.9% 1,000 ML IV SCH (09:02)
--- NOTE | 2018-11-07 09:52 | NUR ---
PATIENT REFUSED COLACE. SHE SAID SHE HAS NO PROBLEMS USING THE RESTROOM. EDUCATED ON THE IMPORTANCE. STILL REFUSED, IV LEAKING, REMOVED L AC 20, TIP INTACT. IV NS 40 NOW INFUSING ON R AC 24G. CLEAN, DRY AND INTACT. WILL CONTINUE TO MONITOR. PATIENT IS ABLE TO MAKE NEEDS KNOWN
--- NOTE | 2018-11-07 10:48 | NUR ---
CHANGED DRESSINGS ON SACRAL AREA AND R HIP. BOTH DRAINS, DRAINING WELL. DRESSINGS ARE CLEAN, DRY AND INTACT.
[2018-11-07 10:54] LABS: BASOPHILS % (AUTO) 0.1 % (0.0-2.0); EOSINOPHILS # (AUTO) 0.3 K/uL (0-0.4); EOSINOPHILS % (AUTO) 3.2 % (0.0-4.0); HEMOGLOBIN 7.9 g/dL (12.0-16.0); LYMPHOCYTES # (AUTO) 2.1 K/uL (2.5-16.5); LYMPHOCYTES % (AUTO) 21.5 % (20.5-51.1); MEAN CORPUSCULAR HEMOGLOBIN 30 pg (27-31); MEAN CORPUSCULAR HGB CONC 34 g/dL (33-37); MEAN CORPUSCULAR VOLUME 88.9 fL (80-94); MONOCYTES # (AUTO) 0.8 K/uL (0.8-1.0); MONOCYTES % (AUTO) 7.7 % (1.7-9.3); NEUTROPHILS # (AUTO) 6.7 K/uL (1.8-7.7); NEUTROPHILS % (AUTO) 67.5 % (42.2-75.2); PLATELET COUNT (AUTO) 350 K/uL (140-450); RED BLOOD CELL COUNT(AUTO) 2.59 MIL/uL (4.20-5.40); RED CELL DISTRIBUTION WIDTH 13.7 % (11.6-13.7); WHITE BLOOD COUNT (AUTO) 9.9 K/uL (4.8-10.8)
[2018-11-07 11:29] LABS: ANION GAP 10.3 (8-16); CARBON DIOXIDE 27.2 mmol/L (21-32); CREATININE 0.5 mg/dL (0.6-1.3); POTASSIUM 3.5 mmol/L (3.5-5.1)
--- NOTE | 2018-11-07 12:00 | NUR ---
PATIENT TOOK A SHOWER AND FELT WEAK ON THE WAY BACK. PATIENT BACK IN BED. DRESSINGS CHANGED
[2018-11-07] MEDS: GAUZE TP SCH (12:28)
--- NOTE | 2018-11-07 14:20 | NUR ---
NO IV ACCESS AT THIS TIME. SHAYE CHARGE NURSE ATTEMPTED. PATIENT IS A HARD STICK. PATIENT REFUSED IV AT THIS TIME, SHE SAID TO TRY AGAIN LATER
[2018-11-07 16:00] VITALS: BP 112/62
--- NOTE | 2018-11-07 16:01 | NUR ---
NEW IV ON R AC 20G INFUSING ROCEPHIN AT 100. CLEAN, DRY AND INTACT. ADMINISTERED PRN PAIN MED. PATIENT TOLERATED WELL. EDUCATED ON SIDE EFFECTS. PATIENT VERBALIZED UNDERSTANDING. PATIENT ABLE TO MAKE NEEDS KNOWN. WILL CONTINUE TO MONITOR THE PATIENT
--- NOTE | 2018-11-07 18:00 | NUR ---
45 REMOVED FROM HEMOVAC. PATIENT TOLERATED WELL
--- NOTE | 2018-11-07 19:30 | NUR ---
GAVE BEDSIDE REPORT TO REFINERY OPERATOR HELPER NURSE. PATIENT ENDORSED IN STABLE CONDITION
--- NOTE | 2018-11-07 19:31 | NUR ---
RECEIVED PT IN STABLE CONDITION FROM AM NURSE. AWAKE,ALERT AND ORIENTED X4. ON MED SURG . NO C/O ANY DISCOMFORT NOR PAIN NOTED AT THIS TIME. HAS IVF INFUSING WELL ON THE RT AC G#20. CLEAR AND PATENT. LOWER ABDOMEN WITH INCISION,,HAS HEMOVAC DRAIN . AND ALSO HAS JOAN DRAIN ON THE COCCYX AREA. WITH LIGHT SEROSANGUINEOUS DRAINAGE NOTED. PLAN OF CARE DISCUSSED AND VERBALIZED UNDERSTANDING. BED ON LOW POSITION. SIDE RAILS UP X2. CALL LIGHT PLACED WITHIN EASY REACH. WILL CONTINUE TO MONITOR.
[2018-11-07] MEDS: ONDANSETRON 4 MG/2 ML VIAL IVP PRN (20:20)
--- NOTE | 2018-11-07 20:30 | NUR ---
FAMILY MEMBER AT BEDSIDE. BROUGHT SOME FOOD FOR PT.
--- NOTE | 2018-11-07 21:50 | NUR ---
AWAKE AND C/O ABDOMINAL PAIN 03/08 . WILL MEDICATE ORDERED.
--- NOTE | 2018-11-07 23:00 | NUR ---
MADE ROUNDS. PT IS ASLEEP. NO S/S OF ANY PAIN NOTED. WILL CONTINUE TO MONITOR.
[2018-11-07 23:30] VITALS: BP 114/67
--- NOTE | 2018-11-08 01:00 | NUR ---
UP TO THE BATHROOM. VOIDED. DRESSING ON RT HIP , BACK AND COCCYX DRY AND CLEAN.
[2018-11-08] MEDS: HYDROmorphone 1 MG/ML AMP IVP PRN ×3 (02:01→11:29)
--- NOTE | 2018-11-08 03:00 | NUR ---
PT IS ASLEEP. NO S/S OF ANY DISCOMFORT NOR PAIN NOTED.
[2018-11-08] MEDS: NACL 0.9% 1,000 ML IV SCH ×2 (04:32→09:02)
--- NOTE | 2018-11-08 05:00 | NUR ---
MADE ROUNDS. PT IS ASLEEP. NO S/S FO ANY PAIN NOTED. WILL CONTINUE TO MONITOR.
--- NOTE | 2018-11-08 06:00 | NUR ---
GOT UP TO THE RESTROOM. VOIDED. DRESSING ON THE RT HIP AND COCCYX CAME OUT, AND WET. CLEANED ,KEPT DRY AND NEW DRESSING CHANGED.
--- NOTE | 2018-11-08 07:10 | NUR ---
ENDORSED PT IN STABLE CONDITION TO AM NURSE FOR CONTINUITY OF CARE.
--- NOTE | 2018-11-08 07:11 | NUR ---
RECEIVED BEDSIDE REPORT FROM GUEST SERVICE AIDE NURSE. PATIENT IS AWAKE, ALERT AND ORIENTEDX4. NO SIGNS OF DISTRESS ON RA. SKIN HAS LOW ABD, UMBILICAL, AND BACK SURGERY, IT IS CLEAN, DRY AND DRESSING IN PLACE. R AC 20G INFUSING NS AT 40. CLEAN, DRY AND INTACT. PATIENT IS CONTINENT, AMBULATORY. BED IN LOW POSITION. CALL LIGHT WITHIN REACH. WILL CONTINUE TO MONITOR THE PATIENT.
[2018-11-08 08:00] VITALS: BP 102/59
[2018-11-08] MEDS: DOCUSATE SODIUM 250 MG GELCAP PO SCH (09:33)
--- NOTE | 2018-11-08 09:33 | NUR ---
ADMINISTERED MEDS. PATIENT TOLERATED WELL. EDUCATED ON SIDE EFFECTS. BED IN LOW POSITION. CALL LIGHT WITHIN REACH. WILL CONTINUE TO MONITOR THE PATIENT
--- NOTE | 2018-11-08 11:29 | NUR ---
ADMINISTERED PRN PAIN MED. PATIENT TOLERATED WELL. WILL CONTINUE TO MONITOR THE PATIENT
--- NOTE | 2018-11-08 13:00 | NUR ---
PATIENT IS SLEEPING. NO SIGNS OF DISTRESS. WILL CONTINUE TO MONITOR THE PATIENT
--- NOTE | 2018-11-08 13:21 | NUR ---
WOUND HEALING DIET EDUCATION WAS PROVIDED TO THE PT. A HANDOUT WAS GIVEN TO THE PT, AND PT ACCEPTED.
[2018-11-08] MEDS: GAUZE TP SCH (13:47)
--- NOTE | 2018-11-08 14:55 | NUR ---
PATIENT REFUSED SCHEDULED ROCEPHIN D/T IV INFILTRATION, SHE REFUSES ANOTHER IV. SHE SAID IT IS TOO PAINFUN. EDUCATED PATIENT ON THE RISKS OF REFUSAL. SHE REFUSED BECAUSE PATIENT WILL BE DISCHARGED TODAY.
[2018-11-08 16:00] VITALS: BP 113/65
--- NOTE | 2018-11-08 16:27 | NUR ---
50ML REMOVED FROM PATIENTS HEMOVAC.
[2018-11-08] MEDS ORDERED: HYDR2TAB6 PO (16:45)
[2018-11-08] MEDS ORDERED: HYDR-5092 PO (16:47)
[2018-11-08] MEDS ORDERED: DOCU-299 PO (16:47)
--- NOTE | 2018-11-08 17:30 | NUR ---
EDUCATED PATIENT ON DISEASE PROCESS, ABN S/SX, WHEN TO GO TO THE ER, WOUND CARE, FOLLOW UP W PCP AND SURGEON, EDUCATED ON MEDS, GAVE PRESCRIPTIONS. EDUCATED ON REFUSAL OF FLU VACCINE, NOT A CANDIDATE FOR PNA. GAVE WOUND CARE SUPPLIES. PATIENT SIGNED PAPERWORK AND VERBALIZED UNDERSTANDING. PATIENT LEFT IN STABLE CONDITION W
== END 2018-11-08 17:30 | disposition home or self-care (01) | DRG 861 ==
LOC: MED 14:06 → MMU 23:39 → OBSVTOIN 11-04 11:18
PROVIDERS: ADMIT Internal Medicine Pulmonary Disease; ATTEND Internal Medicine Pulmonary Disease
DX: G89.18 Other acute postprocedural pain (principal); E44.1 Mild protein-calorie malnutrition; E66.01 Morbid (severe) obesity due to excess calories; K59.00 Constipation, unspecified; Z68.37 Body mass index [BMI] 37.0-37.9, adult; Z79.899 Other long term (current) drug therapy
CPT/HCPCS: 96374; 99285; G0378; 36415; 36600; 71045; 80048; 80053; 81001; 82550; 82553; 82803; 83605; 83735; 83874; 83880; 84484; 85025; 85610; 85730; 87040; 87070; 87075; 87081; 87086; 87205; 93005; J0696; J1170; J2270; J2405; J3010; J7030; J7060; Q0092; Q0163; Q9967

== ENCOUNTER 2020-11-29 22:56 | Emergency (ER) | payer OTHER ==
[~2020-11-29] VITALS: Ht 157.5 cm; Wt 95.3 kg
[~2020-11-29 22:56] MED LIST changes: +DOCU-299 PO; +HYDR-5092 PO; +HYDR2TAB6 PO; -IBUP-2213 PO; -PREN-385 PO; -SIME80CT70 PO
[2020-11-29 23:08] VITALS: BP 144/101
--- NOTE | 2020-11-29 23:11 | NUR ---
TO LOBBY A/W BED AMBULATORY
--- NOTE | 2020-11-29 23:30 | NUR ---
25/F BIB SELF FOR WOUND CHECK. PT S/P ARM LIFT LAST 11/10 ON BOTH ARMPITS. RIGHT ARMPIT SUTURE INTACT, SOME REDNESS NOTED. LEFT ARMPIT REDDENED WELL, SUTURES IN PLACE, PUS NOTED. PT VERBALIZES PAIN OF 5/10 WHEN MOVING. DENIES PMH NKA
[2020-11-30] MEDS ORDERED: ACETAMINOPHEN 325 MG TAB PO ONE (00:20)
[2020-11-30] MEDS ORDERED: SULF-59 PO (00:22)
[2020-11-30] MEDS ORDERED: CEPH-588 PO (00:22)
[2020-11-30] MEDS ORDERED: LIDOCAINE MPF 1% 5 ML ONE (00:42)
[2020-11-30] MEDS ORDERED: cefTRIAXone 1,000 MG VIAL ONE (00:42)
[2020-11-30] MEDS: SULFAMETH/TRIMETH DS 800/160MG 1 TAB PO ONE (00:44)
[2020-11-30] MEDS: KETOROLAC 30 MG/ML VIAL IM ONE (00:45)
[2020-11-30] MEDS: cefTRIAXone 1,000 MG in LIDOCAINE MPF 1% 2.1 ML IM ONE (00:46)
[2020-11-30 01:10] VITALS: BP 144/101
--- NOTE | 2020-11-30 01:10 | NUR ---
Patient discharged with v/s stable. Written and verbal after care instructions given and explained. Patient alert, oriented and verbalized understanding of instructions. Ambulatory with steady gait. All questions addressed prior to discharge. ID band removed. Patient advised to follow up with PMD. Rx of BACTRIM, KEFLEX given. Patient educated on indication of medication including possible reaction and side effects. Opportunity to ask questions provided and answered.
== END 2020-11-30 01:10 | disposition home or self-care (01) ==
LOC: MED 22:56
DX: L02.412 Cutaneous abscess of left axilla (principal); Z79.899 Other long term (current) drug therapy
CPT/HCPCS: 96372; 99284; J0696; J1885; J2001